=== PATIENT | female | born 1985 | race Hispanic/Latino ===

== ENCOUNTER → 2018-03-17 | Day surgery (SDC) | payer OTHER ==
[2018-03-08 09:20] LABS: HEMATOCRIT 39.8 % (34.2-44.1); HEMOGLOBIN 12.8 g/dL (12.0-16.0)
[2018-03-08 09:51] LABS: ANION GAP 13.1 mmol/L (8-16); BLOOD UREA NITROGEN 9 mg/dL (7-26); BUN/CREATININE RATIO 13 (6-25); CALCIUM 9.3 mg/dL (8.4-10.2); CARBON DIOXIDE 24 mmol/L (22-29); CHLORIDE 103 mmol/L (98-107); CREATININE, SERUM 0.67 mg/dL (0.57-1.11); EST GLOMERULAR FILTRATION RATE > 60 ML/MIN (60-); GLUCOSE 116 mg/dL (74-118); POTASSIUM 4.1 mmol/L (3.5-5.1); SODIUM 136 mmol/L (136-145)
[~2018-03-17] MED LIST: BALANCED SALT SOLN (OPTH) 15 ML BTL IO ONE; LIDOCAINE HCL 2% LOCAL INJ 5 ML SDV VIAL INJ ONE; LIDOCAINE HCL-PF 4% 40 MG/1 ML 5ML AMP ONE; METFORMIN HCL500 MG PO; MIDAZOLAM HCL 2 MG/2 ML VIAL ONE; PROPOFOL IV EMULSION 10 MG/ML 20 ML VIAL ONE
--- OUTSIDE RECORDS SUMMARY | 2018-03-17 07:02 | XMS REPORT | Clinical Summary ---
Author Author [facility] Organization [facility] Address Unknown Phone Unavailable Care Team Providers Care Surveillance Monitor Name Role Phone Cezar Vigil MD PCP Allergies No Known Allergies Current Medications Prescription Sig. Disp. Refills Start End Date Status Date blood glucose Use as directed.. 1 Kit 0 10/18/19 Active meterIndications: Type 2 16 diabetes mellitus without complication lisinopril (ZESTRIL) 2.5 Take 1 tablet by mouth 90 tablet 1 01/12/20 Active mg tabletIndications: daily. 18 Microalbuminuria metFORMIN (GLUCOPHAGE) Please take 1 tablet in 270 tablet 1 01/12/20 Active 500 mg tabletIndications: am and 2 tablets in pm 18 Type 2 diabetes mellitus with meals. without complication, without long-term current use of insulin atorvastatin (LIPITOR) 40 Take 1 tablet by mouth at 90 tablet 1 01/12/20 Active mg tabletIndications: bedtime nightly. 18 Hyperlipidemia, unspecified hyperlipidemia type lancets 28 2 times weekly. 100 Each 01/14/20 Active gaugeIndications: Type 2 18 diabetes mellitus without complication, without long-term current use of insulin blood glucose test 2 times weekly. 100 Each 01/14/20 Active stripsIndications: Type 2 18 diabetes mellitus without complication, without long-term current use of insulin, Follow up loratadine (CLARITIN) 10 Take 1 tablet by mouth 90 tablet 0 01/12/20 Active mg tabletIndications: daily as needed for 18 Seasonal allergic Allergies. rhinitis, unspecified trigger lancets 28 2 times weekly. 100 Each 11 10/21/19 06/07/19 Discontin gaugeIndications: Type 2 16 18 ued diabetes mellitus without complication Vit A & D-White Apply to affected area. 1 Tube 0 01/23/20 06/07/19 Discontin Petrolatum-Avel (A + D, 16 18 ued AVEL, PET,) OintIndications: Monilial cystitis vitamin Take 1 tablet by mouth 30 tablet 0 08/10/19 06/07/19 Discontin tabletIndications: daily Pharmacist september 16 18 ued , unspecified select any gestational age Vitamin product covered on the patient's insurance for new rxs and refills. lancets 28 Check blood glucose 4 200 Each 9 08/12/19 06/07/19 Discontin gaugeIndications: Type 2 times daily. 17 18 ued diabetes mellitus with complication, without long-term current use of insulin blood glucose test 4 times daily to test 150 Each 12 10/28/19 06/07/19 Discontin stripsIndications: Type 2 blood sugar. 17 18 ued diabetes mellitus with complication, without long-term current use of insulin blood glucose test strips 4 times daily Check BG 150 Each 3 02/10/20 06/07/19 Discontin fasting and 2 hours after 17 18 ued breakfast, lunch, and dinner.. tropicamide (MYDRIACYL) Instill 1 Drop in each 15 mL 0 06/07/19 06/07/19 0.5 % ophthalmic eye once as needed for up 18 18 solutionIndications: Type to 1 dose (for poor 2 diabetes mellitus retina scan image). without complication, without long-term current use of insulin metFORMIN (GLUCOPHAGE) Please take 1 tablet in 270 tablet 1 06/07/19 01/12/20 Discontin 500 mg tabletIndications: am and 2 tablets in pm 18 18 ued Type 2 diabetes mellitus with meals. without complication, without long-term current use of insulin blood glucose test 2 times weekly. 100 Each 06/07/19 01/12/20 Discontin stripsIndications: Type 2 18 18 ued diabetes mellitus without complication, without long-term current use of insulin, Follow up lancets 28 2 times weekly. 100 Each 06/07/19 01/12/20 Discontin gaugeIndications: Type 2 18 18 ued diabetes mellitus without complication, without long-term current use of insulin atorvastatin (LIPITOR) 40 Take 1 tablet by mouth at 90 tablet 1 07/02/19 01/12/20 Discontin mg tabletIndications: bedtime nightly. 18 18 ued Hyperlipidemia, unspecified hyperlipidemia type lisinopril (ZESTRIL) 2.5 Take 1 tablet by mouth 45 tablet 1 07/02/19 10/05/19 Discontin mg tabletIndications: daily. 18 18 ued Microalbuminuria mupirocin (BACTROBAN) 2 % Apply to affected area 3 22 g 0 07/02/19 07/13/19 ointmentIndications: Boil times daily for 7 days. 18 18 acyclovir (ZOVIRAX) 400 Take 1 tablet by mouth 3 15 tablet 0 07/06/19 07/14/19 mg tabletIndications: times daily for 5 days. 18 18 HSV-1 infection lisinopril (ZESTRIL) 2.5 Take 1 tablet by mouth 90 tablet 0 10/05/19 01/12/20 Discontin mg tabletIndications: daily. 18 18 ued Microalbuminuria ibuprofen (MOTRIN) 800 mg Take 1 tablet by mouth 30 tablet 0 10/05/19 01/12/20 Discontin tabletIndications: Acute every 8 hours as needed 18 18 ued upper respiratory for Pain. infection azithromycin (ZITHROMAX) Take 2 tablets by mouth 6 Each 0 10/05/19 10/10/19 250 mg tabletIndications: on the first day, then 18 18 Acute upper respiratory take one tablet every day infection for the next 4 days. benzonatate (TESSALON Take one to two capsules 30 capsule 0 10/05/19 01/12/20 Discontin PERLES) 100 mg three times a day as 18 18 ued capsuleIndications: Cough needed for cough. 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 All appointments scheduled for 02/01/17. 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 01/26/2017 Will start ANT now at 30 weeks due to risk of anhydramnios. Patient's [facility] appts scheduled for 02/01/17 Maura Study Participant - Page [phone] upon arrival to [facility], admission 09/15/2016 to L&D & at delivery Overview: Maura: BACTERIA AND STUDY: This patient is enrolled in a long-term study. PLEASE page [phone] if the patient is admitted, or presents to the ER. If delivery is precipitous, PLEASE save placenta and cord blood. Type 2 diabetes mellitus without complication 08/25/2016 Overview: Formatting of this note may be different from the original. Current Medications: Glyburide 1.5mg qAM and 3 mg qPM Baseline Labs/ Consults: Date A1c BUN Cr 24 hour protein EKG 6.4 7 0.51 286mg ( 11/25) SINUS TACHYCARDIA; ABNORMAL RHYTHM ECG Course: 08/25/16: Changed from Metformin to Glyburide 09/07/2016: Increased Glyburide 1.5 BID. 11/17/2016: BG moderately controlled. Fasting BG > 50% elevated mostly 96-98. Pp BG appropriate. Discussed ADA diet. Will continue same regimen. 12/01/2016 reports some elevated fasting and post prandials, taking glyburide 1.5 BID 12/15/2016 no med changes, improve diet control, incorporate exercise 01/12/2017 Elevated fasting glucoses, discussed diet and incorporating exercise. Increase evening glyburide dose --> 1.5mg AM, 3mg PM 01/26/2017 Has some postpranidal elevations up to 130. Discussed diet. Will maintain same glyburide regimen 02/09/2017 BG's overall moderately well controlled, reinforced importance of diet. Continue Glyburide 1.5 mg qAM and 3 mg qPM. Plan: Well-controlled: testing weekly starting at 32-34 weeks Growth scan at 36 weeks Cervical exams and membrane stripping starting at 38 weeks (unless for C/S) Delivery at 39 weeks Poorly-controlled: testing twice weekly starting at 32 weeks Growth scan at 36 weeks Cervical exams and membrane stripping starting at 38 weeks (unless for C/S) Delivery at 34-39 weeks if poor control (Individualize to situation) Delivery at 37-39 weeks if vascular disease (Individualize to situation) Thyroid nodule 08/25/2016 Overview: Formatting of this note may be different from the original. 08/24/16: Reports thyroid nodule that has increased in size. Thyroid ultrasound in October 2015: 0.3 cm solid nodule in the left thyroid lobe. This may be followedwith thyroid ultrasound in 12 months to document stability. Will check TFTs today. 08/25/2016 10:16 Free T4 1.12 TSH 1.02 10/27/2016 asymptomatic. Thyroid US re-ordered. 11/17: US not yet scheduled, will attempt to schedule now. Asymptomatic. 01/12/2017 US re-ordered today 01/26/2017 US thyroid scheduled 02/08/17 02/09/2017 Patient reports that thyroid US cancelled as it is not covered by [employer]. Patient encouraged to apply for [employer] (air [employer]). Herpes infection 08/25/2016 Overview: 08/25/16: Patient reports that her partner has genital herpes. She has never had an outbreak or symptoms. [ ] Start acyclovir suppression at 36wga Resolved Problems Problem Noted Date Resolved Date Supervision of high-risk 08/25/2016 07/01/2017 Overview: Formatting of this note may be different from the original. Labs: Type/Scr RPR Rubella HBsAG HIV Sickle Scr Early H/H Early Plt UCx O+/neg NR Imm neg neg 11.8/35.9 230 neg GC/Chl Pap Quad Scr 1 hr GTT 3rd RPR 3rd HIV 3rd H/H 3rd Plt GBS Neg/Neg NILM neg T2DM U/S Dating U/S on 09/04/16: at 9w0d, dating c/w LMP Anatomy U/S on 11/05/16 -> 17w0d: 175g ( 44%), placenta posterior. Anatomy suboptimal: left renal pelvis was incompletely seen, and no bladder was clearly visualized, may represent renal agenesis. Single umbilical artery. Follow up Anatomy on 11/24/16: 19w5d: 299 g (41%), single umbilical artery, bilateral echogenic kidneys, renal arteries identified, concern for aneuploidy, amnio performed 02/09/17: S/p MRI at [facility], plan for transfer of care to [facility] for delivery. Plan: [ ] Quad Screen @ 15-22 weeks (Ideally 16-18 weeks) [ ] TDap at 28-32 weeks: [ ] 3rd Trimester HIV, CBC, GBS H/O delivery, currently 08/25/2016 07/01/2017 Overview: 08/25/16: delivery at 33wk at [facility], L&D notes reviewed in Epic and patient presented in spontaneous pre-term labor. Discussed risks/benefits of 17-OHP and importance of continuing weekly. Discussed does not need cervical length monitoring. Patient would like to start 17OHP at 16wks. Continue until 36 wks. 09/08/16 - Cervical lengths screening is indicated at 16 weeks given PTB was < 34 weeks. Will order and initiate with 17OHP. 10/13/2016Patient counseled by Dr. Little, defer CL until anatomy scan and 17OHP until viability. 10/27/2016 will start 17-OHP today 11/17: continue injections. Next CL 11/24. 02/09/2017: Continue 17-OHP Encounters Date Type Specialty Care Team Description 03/14/2018 Lab Appointment Lab Cezar Vigil MD Type 2 diabetes mellitus without complication, without long-term current use of insulin 02/03/2018 Hospital Cardiology Cezar Vigil MD Encounter 01/11/2018 Office Visit Family Practice Cezar Vigil MD Type 2 diabetes mellitus without complication, without long-term current use of insulin (Primary Dx); Microalbuminuria; Hyperlipidemia, unspecified hyperlipidemia type; Follow up; Palpitation; Seasonal allergic rhinitis, unspecified trigger 01/11/2018 Telephone Cordell Roberts Interpretation 10/04/2017 Same Day Family Practice Paloma Hurtado, PHONE REPRESENTATIVE Acute upper respiratory JaceyMarj, PHONE REPRESENTATIVE infection (Primary Dx); Cough; Microalbuminuria 07/08/2017 Pharmacy Visit 07/06/2017 Pharmacy Visit 07/05/2017 Orders Only Family Practice Cezar Vigil MD HSV-1 infection (Primary Dx) 07/05/2017 Pharmacy Visit 07/01/2017 Office Visit Family Practice Cezar Vigil MD Type 2 diabetes mellitus without complication, unspecified jail insulin use status (Primary Dx); Hyperlipidemia, unspecified hyperlipidemia type; Microalbuminuria; Vaginal lesion; Boil 07/01/2017 Pharmacy Visit 07/01/2017 Telephone Lorenzo Stark Interpretation 06/23/2017 Ancillary Radiology Procedure 06/07/2017 Ancillary Ophthalmology Roberth Garibay MD Type 2 diabetes mellitus Procedure without complication, without long-term current use of insulin 06/07/2017 Ancillary Radiology Roberth Garibay MD Procedure 06/07/2017 Office Visit Family Practice Cezar Vigil MD Encounter for diabetic foot exam (Primary Dx); Type 2 diabetes mellitus without complication, without long-term current use of insulin; Injury of left foot, initial encounter; Need for vaccination; Follow up 04/09/2017 Orders Only Family Practice Nathaly England MD 04/02/2017 Orders Only Obstetrics Carol Mcclure ResidentMD Supervision of high risk in third trimester 04/02/2017 Orders Only Family Practice Nathaly England MD 03/26/2017 Orders Only Obstetrics Carol Mcclure ResidentMD Supervision of high risk in third trimester 03/26/2017 Orders Only Family Practice Nathaly England MD 03/19/2017 Orders Only Obstetrics Carol Mcclure ResidentMD Supervision of high risk in third trimester 03/19/2017 Orders Only Family Practice Nathaly England MD after 03/16/2017 Immunizations Name Dates Previously Given Next Due Influenza A (H1N1) Vac 03/27/2009 Injection Influenza Vaccine 03/20/2016, 02/06/2015, 02/16/2014, 03/08/2013, 02/23/2012, 04/01/2011 (Deferred: Patient already had this immunization) Influenza Vaccine, 02/17/2017 Seasonal, Injectable PPV 23 Pneumococcal 08/29/2015 Polysaccaride TDap (Tetanus Toxoid, 01/26/2017 Reduced Diphtheria Toxoid And Acellular Pertussis, Absorbed) Td Tetanus, diphtheria 07/25/2001 Toxoids Vaccine Tdap Tetanus, diphtheria, 01/26/2017, 05/21/2011 acellular pertussis Vaccine Family History Medical History Relation Name Comments Diabetes Father Hypertension Father Hypothyroid Mother Thyroid cancer diagnosed at 57 years old Diabetes Paternal Grandmother Hypertension Sister Relation Name Status Comments Brother Alive Father Alive Mother Alive Paternal Grandmother Sister Alive x4 Sister Social History Tobacco Use Types Packs/Day Years Used Date Never Smoker Smokeless Tobacco: Never Used Tobacco Cessation: Counseling Given: No Alcohol Use Drinks/Week oz/Week Comments No Sex Assigned at Date Recorded Not on file Last Filed Vital Signs Vital Sign Reading Time Taken Blood Pressure 132/87 01/11/2018 8:16 AM CDT Pulse 84 01/11/2018 8:16 AM CDT Temperature 36.8 C (98.3 F) 01/11/2018 8:16 AM CDT Respiratory Rate 18 01/11/2018 8:16 AM CDT Oxygen Saturation 99% 10/04/2017 10:03 AM CDT Inhaled Oxygen - - Concentration Weight 76.4 kg (168 lb 6.4 oz) 01/11/2018 8:16 AM CDT Height 157.5 cm (5' 2") 01/11/2018 8:16 AM CDT Body Mass Index 30.8 01/11/2018 8:16 AM CDT Plan of Treatment Health Maintenance Due Date Last Done Comments DM Foot Exam (Yearly) 06/07/2018 06/07/2017, 07/11/2013 (Postponed), 07/07/2012 DM Retinal Exam (Yearly) 06/07/2018 06/07/2017, 10/08/2015, 07/11/2013 (Postponed), Additional history exists DM HGBA1C (Yearly) 03/14/2019 03/14/2018, 06/07/2017, 08/25/2016, Additional history exists Cervical Cancer Scrn (3 08/26/2019 08/25/2016, 07/11/2013 Yrs) Goals Patient Goal Type Goal Recent Progress Patient-Stat Author ed? Diet Eat more fruits and No Jaymie, vegetables Selma Arielle, LD Diet Reduce portion size No Jaymie, Reduce tortillas to 2-3 Selma Arielle, per (short-term goal) LD Diet Have 3 meals + 1 HS Snack No [place], daily Selma Arielle, LD Exercise Exercise 3x per week (30 Not on track (10/25/2015) No [place], min per time) Primitivo New RN Procedures Procedure Name Priority Date/Time Associated Diagnosis Comments BASIC METABOLIC PANEL Routine 03/14/2018 Type 2 diabetes mellitus Results for this 11:45 AM ELASTIC ATTACHER COVERSTITCH without complication, procedure are in the without long-term current results section. use of insulin HEMOGLOBIN A1C Routine 03/14/2018 Type 2 diabetes mellitus Results for this 11:45 AM ELASTIC ATTACHER COVERSTITCH without complication, procedure are in the without long-term current results section. use of insulin 24 HOUR HOLTER MONITOR Routine 02/03/2018 Palpitation Results for this 9:15 AM CDT procedure are in the results section. 12 LEAD EKG Routine 01/11/2018 Palpitation Results for this 9:29 AM CDT procedure are in the results section. SYPHILIS SCREEN FOR Routine 07/01/2017 Vaginal lesion Results for this INFECTION 2:10 PM ELASTIC ATTACHER COVERSTITCH procedure are in the results section. HEPATITIS PANEL Routine 07/01/2017 Vaginal lesion Results for this 2:10 PM ELASTIC ATTACHER COVERSTITCH procedure are in the results section. HSV I/II IGG Routine 07/01/2017 Vaginal lesion Results for this 2:10 PM ELASTIC ATTACHER COVERSTITCH procedure are in the results section. U/S THYROID/NECK Routine 06/23/2017 Follow up Results for this 1:42 PM ELASTIC ATTACHER COVERSTITCH procedure are in the results section. LIVER PROFILE Routine 06/21/2017 Follow up Results for this 11:19 AM ELASTIC ATTACHER COVERSTITCH procedure are in the results section. CBC/DIFF Routine 06/21/2017 Follow up Results for this 11:19 AM ELASTIC ATTACHER COVERSTITCH procedure are in the results section. FREE T4 Routine 06/21/2017 Follow up Results for this 11:19 AM ELASTIC ATTACHER COVERSTITCH procedure are in the results section. TSH Routine 06/21/2017 Follow up Results for this 11:19 AM ELASTIC ATTACHER COVERSTITCH procedure are in the results section. LIPID PROFILE Routine 06/21/2017 Type 2 diabetes mellitus Results for this 11:19 AM ELASTIC ATTACHER COVERSTITCH without complication, procedure are in the without long-term current results section. use of insulin OPHTHALMOLOGY RETINAL Routine 06/07/2017 Type 2 diabetes mellitus Results for this SCAN 1:20 PM ELASTIC ATTACHER COVERSTITCH without complication, procedure are in the without long-term current results section. use of insulin DIABETIC FOOT EXAM Routine 06/07/2017 Type 2 diabetes mellitus Results for this 12:25 PM ELASTIC ATTACHER COVERSTITCH without complication, procedure are in the without long-term current results section. use of insulin BMP POC Routine 06/07/2017 Results for this 11:19 AM ELASTIC ATTACHER COVERSTITCH procedure are in the results section. XRAY FOOT 3 VIEWS MIN Routine 06/07/2017 Injury of left foot, Results for this 11:10 AM ELASTIC ATTACHER COVERSTITCH initial encounter procedure are in the results section. MICROALBUM, URINE Routine 06/07/2017 Type 2 diabetes mellitus Results for this 10:52 AM ELASTIC ATTACHER COVERSTITCH without complication, procedure are in the without long-term current results section. use of insulin HEMOGLOBIN A1C STAT 06/07/2017 Type 2 diabetes mellitus Results for this 10:28 AM ELASTIC ATTACHER COVERSTITCH without complication, procedure are in the without long-term current results section. use of insulin after 03/16/2017 Results * HEMOGLOBIN A1C (03/14/2018 11:45 AM) Only the most recent of 2 results within the time period is included. Hemoglobin A1c 6.6 (H) 4.3 - 6.1 % BT DIAGNOSTIC IMMUNOLOGY Est Average Gluc 142.7 mg/dL BT DIAGNOSTIC IMMUNOLOGY Specimen Blood Performing Organization Address [facility] Phone Number MISYS BT DIAGNOSTIC IMMUNOLOGY * BASIC METABOLIC PANEL (03/14/2018 11:45 AM) CO2 25 21 - 31 mmol/L BT MAIN-STATION 1 Chloride 104 98 - 107 mmol/L BT MAIN-STATION 1 Potassium 4.1 3.5 - 5.1 mmol/L BT MAIN-STATION 1 Sodium 141 136 - 145 mmol/L BT MAIN-STATION 1 Glucose 98 70 - 110 mg/dL BT MAIN-STATION 1 Urea Nitrogen 8 7 - 25 mg/dL BT MAIN-STATION 1 Creatinine 0.50 (L) 0.6 - 1.2 mg/dL BT MAIN-STATION 1 Anion Gap 12 BT MAIN-STATION 1 Calcium 9.4 8.6 - 10.3 mg/dL BT MAIN-STATION 1 GFR, Estimated >60 mL/min/1.73 m2 BT MAIN-STATION 1 GFR, Estim, Afr-Am >60 mL/min/1.73 m2 BT MAIN-STATION 1 Specimen Blood Performing Organization Address [facility] Phone Number MISYS BT MAIN-STATION 1 * 24 HOUR HOLTER MONITOR (02/03/2018 9:15 AM) 24 HOUR HOLTER MONITOR [facility] Test Date:2018-02-03 Pat Name: ARA MORALES Department: Room: Gender: F Engineering Program Analyst: SELMA PLEITEZ :1986-0 5-05 Requested By: Order Number: [id number] anaya MD: Hector Silva M.D. Interpretive Statements PREDOMINANT RHYTHM IS SINUS HRR SELAM: 57-152 BPM LONGEST PAUSE: 1.2 SEC RARE PACS NO OTHER ARRHYTHMIAS NO HEART BLOCK Electronically Signed On 02-07-18 07:29:59 CDT by Hector Silva M.D. Performing Organization Address [facility] Phone Number [facility] * 12 LEAD EKG (01/11/2018 9:29 AM) 12 LEAD EKG FOR CHP [facility] Test Date:2018-01-11 Pat Name: ARA MORALES Department: Room: Gender: F Engineering Program Analyst: [id number] :1986-0 5-05 Requested By: Order Number: [id number] MD: Elvin Streeter M.D. Measurements Intervals Wheeler Rate: 75 P:45 ID: [id number] QRS: 14 QRSD: 100 T: 37 QT: 382 QTc:427 Interpretive Statements SINUS RHYTHM Electronically Signed On 01-11-18 13:51:44 CDT by Elvin Streeter M.D. Performing Organization Address [facility] Phone Number SMS * SYPHILIS SCREEN FOR INFECTION (07/01/2017 2:10 PM) Treponemal Ab Negative BT DIAGNOSTIC IMMUNOLOGY Final Report Negative BT DIAGNOSTIC IMMUNOLOGY Performing Organization Address [facility] Phone Number [employer] BT DIAGNOSTIC IMMUNOLOGY * HSV I/II IGG (07/01/2017 2:10 PM) HSV 1 IGG 35.30 LABORATORY Reference range: 0.00 to 0.90 CORPORATION OF Unit: index YG (note) Negative<0 .91 Equivocal 0.91 - 1.09 Positive>1 .09 Note: Negative indicates no antibodies detected to HSV-1. Equivocal may suggest early infection.If clinically appropriate, retest at later date. Positive indicates antibodies detected to HSV-1. (H) HSV 2 IGG <0.91 LABORATORY Reference range: 0.00 to 0.90 CORPORATION OF Unit: index YG (note) Negative<0 .91 Equivocal 0.91 - 1.09 Positive>1 .09 Note: Negative indicates no antibodies detected to HSV-2. Equivocal may suggest early infection.If clinically appropriate, retest at later date. Positive indicates antibodies detected to HSV-2. Specimen Blood Performing Organization Address [facility] Phone Number [employer] [facility] [address], [place] [id number] YG 145 * HEPATITIS PANEL (07/01/2017 2:10 PM) HCV IgG Negative NEG BT MAIN-STATION 3 HBsAg Negative NEG BT MAIN-STATION 3 HAV, IgM Negative NEG BT MAIN-STATION 3 HBcAb, IgM Negative NEG BT MAIN-STATION 3 Specimen Blood Performing Organization Address [facility] Phone Number [employer] BT MAIN-STATION 3 * U/S THYROID/NECK (06/23/2017 1:42 PM) Impressions Performed At IMPRESSION: SMS 1.Two thyroid nodules, the largest of which measures 0.4 cm, which do not meet criteria for FNA or follow-up. 2.Normal bilateral thyroid lobe size and echogenicity. TR4a (<1.0 cm), , Moderately Suspicious: No follow-up. TI-RADS Lexicon: TR1, Benign: No FNA TR2, Not Suspicious: No FNA. TR3a (<1.5 cm): No follow-up. TR3b (1.5-2.5 cm), Mildly Suspicious: Follow at 1, 3, 5 years. TR3c (>2.5 cm), Mildly Suspicious: FNA. TR4a (<1.0 cm): No follow-up. TR4b (1.0-1.5 cm), Moderately Suspicious: Follow at 1, 2, 3, 5 years. TR4c (>1.5 cm), Moderately Suspicious: FNA. TR5a (<0.5 cm): No follow-up. TR5b (0.5-1.0 cm), Highly Suspicious: Follow at 1, 2, 3, 4, 5 years. TR5c (>1.0 cm), Highly Suspicious: FNA. *Rebiopsy if new suspicious features *No recommendation at this time for significant interval growth. Nodule Characteristics: *Benign features: cystic, hyperechoic, comet-tail artifact, complete halo *Minor suspicious features: solid, hypoechoic, other calcifications *Major suspicious features: microcalcifications, marked hypoechoic (less than strap muscle), suspicious lymph nodes, taller than wide, lobulated or ill-defined margins. Literature: ACR Thyroid Imaging, Reporting and Data System (TI-RADS): White Paper of the ACR TI-RADS Committee. J Am Racquel Radiol 2017. Dictated By: Don Garcia MD, 06/23/2017 1:44 PM I have reviewed the study and agree with the findings in this report. Signed By: Gwyn Villatoro MD, 06/23/2017 2:03 PM Narrative Performed At EXAM: Thyroid Ultrasound [facility] INDICATION: pt states she had thyroid nodule - f/u COMPARISON: Thyroid ultrasound from 10/15/2015 TECHNIQUE: Transverse and sagittal images were obtained of the thyroid gland. FINDINGS: Thyroid gland: Size: Right lobe 3.9 x 1.2 x 1.4 cm, Normalin size Left lobe 3.8 x 1.3 x 1.3 cm, Normalin size Isthmus 0.25 cm, Normal in size Appearance: Homogeneous echotexture without increased vascularity Masses/Nodules: Right lobe: 0.4 x 0.3 x 0.2 cm solid (2 pts) nodule in the superior pole with ill-defined margin (0 pts), xmnrp-ennc-ljdw (0 pts), isoechoic (1 pt), and no calcifications (0 pts).TR3a (<1.5 cm): No follow-up. Left lobe: 0.2 x 0.2 x 0.3 cm solid (2 pts) nodule in the inferior pole with ill-defined margin (0 pts), bqqbm-qenl-hifq (0 pts), hypoechoic (2 pts), and no calcifications (0 pts).Previously 0.3 x 0.2 x 0.3 cm.TR4a (<1.0 cm): No follow-up. Parathyroid: No focal parathyroid masses. 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 FINDINGS: Thyroid gland: Size: Right lobe 3.9 x 1.2 x 1.4 cm, Normal in size Left lobe 3.8 x 1.3 x 1.3 cm, Normal in size Isthmus 0.25 cm, Normal in size Appearance: Homogeneous echotexture without increased vascularity Masses/Nodules: Right lobe: 0.4 x 0.3 x 0.2 cm solid (2 pts) nodule in the superior pole with ill-defined margin (0 pts), znrlt-xivi-ekrz (0 pts), isoechoic (1 pt), and no calcifications (0 pts). TR3a (<1.5 cm): No follow-up. Left lobe: 0.2 x 0.2 x 0.3 cm solid (2 pts) nodule in the inferior pole with ill-defined margin (0 pts), purxl-puqx-ppuq (0 pts), hypoechoic (2 pts), and no calcifications (0 pts). Previously 0.3 x 0.2 x 0.3 cm. TR4a (<1.0 cm): No follow-up. Parathyroid: No focal parathyroid masses. IMPRESSION IMPRESSION: 1. Two thyroid nodules, the largest of which measures 0.4 cm, which do not meet criteria for FNA or follow-up. 2. Normal bilateral thyroid lobe size and echogenicity. TR4a (<1.0 cm), , Moderately Suspicious: No follow-up. TI-RADS Lexicon: TR1, Benign: No FNA TR2, Not Suspicious: No FNA. TR3a (<1.5 cm): No follow-up. TR3b (1.5-2.5 cm), Mildly Suspicious: Follow at 1, 3, 5 years. TR3c (>2.5 cm), Mildly Suspicious: FNA. TR4a (<1.0 cm): No follow-up. TR4b (1.0-1.5 cm), Moderately Suspicious: Follow at 1, 2, 3, 5 years. TR4c (>1.5 cm), Moderately Suspicious: FNA. TR5a (<0.5 cm): No follow-up. TR5b (0.5-1.0 cm), Highly Suspicious: Follow at 1, 2, 3, 4, 5 years. TR5c (>1.0 cm), Highly Suspicious: FNA. *Rebiopsy if new suspicious features *No recommendation at this time for significant interval growth. Nodule Characteristics: * Benign features: cystic, hyperechoic, comet-tail artifact, complete halo * Minor suspicious features: solid, hypoechoic, other calcifications * Major suspicious features: microcalcifications, marked hypoechoic (less than strap muscle), suspicious lymph nodes, taller than wide, lobulated or ill-defined margins. Literature: ACR Thyroid Imaging, Reporting and Data System (TI-RADS): White Paper of the ACR TI-RADS Committee. J Am Racquel Radiol 2017. Dictated By: Don Garcia MD, 06/23/2017 1:44 PM I have reviewed the study and agree with the findings in this report. Signed By: Gwyn Villatoro MD, 06/23/2017 2:03 PM Performing Organization Address City/State/[facility] Phone Number SMS * TSH (06/21/2017 11:19 AM) TSH 0.71 0.45 - 5.33 uIU/mL BT MAIN-STATION 3 Specimen Blood Performing Organization Address City/State[facility] Phone Number MIS[facility] BT [facility] * FREE T4 (06/21/2017 11:19 AM) Free T4 0.89 0.61 - 1.12 ng/dl BT MAIN-ST[facility] 3 Comment: females: 1st Trimester-0.52-1.10 ng/dL 2nd Trimester=0.45-0.99 ng/dL 3rd Trimester=0.48-0.95 ng/dL Specimen Blood Performing Organization Address [facility] Phone Number MISYS BT [facility] 3 * LIVER PROFILE (06/21/2017 11:19 AM) T Protein 7.4 6.4 - 8.2 g/dL BT MAIN-STATION 4 Albumin 4.2 3.4 - 5.0 g/dL BT MAIN-[facility]ATION 4 T Bilirubin 0.4 0.2 - 1.0 mg/dL BT MAIN-STATION 4 Alk Phos 106 45 - 117 U/L BT MAIN-STATION 4 AST 12 (L) 15 - 37 U/L BT MAIN-STATION 4 ALT 32 12 - 78 U/L BT MAIN-STATION 4 D Bilirubin 0.1 0.0 - 0.2 mg/dL BT MAIN-STATION 4 Specimen Blood Performing Organization Address [facility] Phone Number MISYS BT MAIN-ST[facility] 4 * LIPID PROFILE (06/21/2017 11:19 AM) Cholesterol 220 (H) <200 mg/dL BT MAIN-STATION 4 Comment: REFERENCE RANGE: Desirable: <200 mg/dL Borderline: 200-240 mg/dL High Risk: >240 mg/dL Triglyceride 266 (H) <150 mg/dL BT MAIN-STATION 4 Comment: REFERENCE RANGE: Normal: <150 mg/dL Borderline High: 150-199 mg/dL High: 200-499 mg/dL Very High: >pb=325 mg/dL HDL 45 40 - 60 mg/dL BT MAIN-STATION 4 Comment: Increased CHD risk: <40 mg/dL Decreased CHD risk: >60 mg/dL LDL 122 mg/dL BT MAIN-STATION 4 Comment: REFERENCE RANGE: Optimal: <100 mg/dL Near Optimal: 100-129 mg/dL Borderline High: 130-159 mg/dL High: 160-189 mg/dL Very High: >wl=002 mg/dL Specimen Blood Performing Organization Address [facility] Phone Number MISYS BT [facility]IN-[facility] 4 * CBC/DIFF (06/21/2017 11:19 AM) WBC 6.5 4.5 - 11.0 K/uL BT MAIN-STATION 2 RBC 4.93 4.20 - 5.40 M/uL BT MAIN-STATION 2 Hemoglobin 12.3 12.0 - 16.0 g/dL BT MAIN-STATION 2 Hematocrit 40.2 37.0 - 47.0 % BT MAIN-STATION 2 MCV 82 82 - 92 fL BT MAIN-STATION 2 MCH 24.9 (L) 27.0 - 32.0 pg BT MAIN-STATION 2 MCHC 30.6 (L) 32.0 - 36.0 g/dL BT MAIN-STATION 2 RDW 50.4 (H) 36.4 - 46.3 fL BT MAIN-STATION 2 Platelet 276 150 - 400 K/uL BT MAIN-STATION 2 Mean Platelet Volume 12.4 9.4 - 12.4 fL BT MAIN-STATION 2 Percent NRBC 0.0 BT MAIN-STATION 2 Absolute NRBC 0.00 BT MAIN-STATION 2 Neutrophil 52.8 34.0 - 70.0 % BT MAIN-STATION 2 Lymphocyte 39.7 20.0 - 50.0 % BT MAIN-STATION 2 Monocyte 5.7 5.0 - 12.0 % BT MAIN-STATION 2 Eosinophil 1.2 0.7 - 5.0 % BT MAIN-STATION 2 Basophil 0.3 0.1 - 1.2 % BT MAIN-STATION 2 Pct Immat Gran 0.3 0.0 - 0.5 BT MAIN-STATION 2 Neutrophil, Abs 3.42 1.56 - 6.13 K/uL BT MAIN-STATION 2 Lymphocyte, Abs 2.57 1.18 - 3.74 K/uL BT MAIN-STATION 2 Monocyte, Abs 0.37 (H) 0.24 - 0.36 K/uL BT MAIN-STATION 2 Eosinophil, Abs 0.08 0.04 - 0.36 K/uL BT MAIN-STATION 2 Basophil, Abs 0.02 0.01 - 0.08 K/uL BT MAIN-STATION 2 Absol Immat Gran 0.02 0.00 - 0.03 K/uL BT MAIN-STATION 2 Specimen Blood Performing Organization Address City/State/Zipcode Phone Number MISYS MA[facility]-ST[facility] 2 * OPHTHALMOLOGY RETINAL SCAN (06/07/2017 1:20 PM) RETINAL SCAN-FINAL RESULT NORMAL [facility] Right Diabetic None [facility] Retinopathy Right Macular Edema None IRIS Right Other Suspected None IRIS Conditions Right Image Quality Gradeable Image IRIS Left Diabetic Retinopathy None IRIS Left Macular Edema None IRIS Left Other Suspected None IRIS Conditions Left Image Quality Gradeable Image [facility]IS Narrative Performed At Retinal Study Result for ARA AYERS MARIA, a 31 y/o, F (: 1985, ) presented to [facility] on 06-07-2017 for a retinal imaging study of the left and right eyes. Based on the findings of the study, the following is recommended for ARA AYERS Normal Scan: Please advise the patient to return for another scan in 1 year. Interpreting Provider's Comments:No comments provided Right Eye Findings: Normal Result.Negative for Diabetic Retinopathy. Left Eye Findings: Normal Result.Negative for Diabetic Retinopathy. This result was electronically signed by Maximino Bo MD. Taxonomy: [id number] on 06-07-2017 06:20:06 [facility] time. NOTE:Any pathology noted on this diabetic retinal evaluation should be confirmed by an appropriate ophthalmic examination. Performing Organization Address City/State/Zipcode Phone Number IRIS * DIABETIC FOOT EXAM (06/07/2017 12:25 PM) Narrative Performed At Cezar Vigil MD 06/07/2017 12:29 PM Diabetic Foot Exam was performed at 06/07/2017 12:28 PM.Right foot sensation is normal, right foot pulses are normal, right foot appearance is normal.Left foot sensation is normal,left foot pulses are normal, left foot appearance is normal. Left foot dorsal aspect bruise noted in the base of the 4th / 5th toe * BMP POC (06/07/2017 11:19 AM) TCO2 POC 26 21 - 32 mmol/L [facility] Chloride POC 99 98 - 107 mmol/L [facility] Potassium POC 4.0 3.50 - 5.10 mmol/L [facility] Sodium POC 138 136 - 145 mmol/L [facility] Glucose POC 112 (H) 74 - 106 mg/dL [facility] Urea Nitrogen POC 5 (L) 7 - 18 mg/dL [facility] Creatinine POC 0.6 0.6 - 1.3 mg/dL [facility] Ionized Calcium POC 1.15 1.15 - 1.29 mmol/L [facility] GFR, Estimated >60 mL/min/1.73 m2 [facility] GFR, Estim, Afr-Am >60 mL/min/1.73 m2 [facility] Performing Organization Address [facility] Phone Number VICKI [facility] * XRAY FOOT 3 VIEWS MIN (06/07/2017 11:10 AM) Impressions Performed At IMPRESSION: SMS Mild dorsal soft tissue swelling without acute osseous abnormalities. Dictated By: Rey Morin MD, 06/07/2017 3:21 PM I have reviewed the study and agree with the findings in this report. Signed By: Rajesh Ricketts MD, 06/07/2017 3:22 PM Narrative Performed At Left foot radiographs - 3 views SMS HISTORY:left foot injury 1 wk ago -has bruise on dorsal aspect near the base of toes and pain in the 4/5 th toe area COMPARISON: None DISCUSSION: Bone: No acute displaced fracture.Fusion of the distal and middle fifth phalanges. Joints: The joint spaces are well-maintained. Soft tissues: Mild dorsal soft tissue swelling overlying the metatarsophalangeal joints. Procedure Note Interface, Rad/Mammog In - 06/07/2017 3:27 PM ELASTIC ATTACHER COVERSTITCH Left foot radiographs - 3 views HISTORY: left foot injury 1 wk ago -has bruise on dorsal aspect near the base of toes and pain in the 4/5 th toe area COMPARISON: None DISCUSSION: Bone: No acute displaced fracture. Fusion of the distal and middle fifth phalanges. Joints: The joint spaces are well-maintained. Soft tissues: Mild dorsal soft tissue swelling overlying the metatarsophalangeal joints. IMPRESSION IMPRESSION: Mild dorsal soft tissue swelling without acute osseous abnormalities. Dictated By: Rey Morin MD, 06/07/2017 3:21 PM I have reviewed the study and agree with the findings in this report. Signed By: Rajesh Ricketts MD, 06/07/2017 3:22 PM Performing Organization Address [facility] Phone Number [facility] * MICROALBUM, URINE (06/07/2017 10:52 AM) Orangealbu, Random 2.3 0.0 - 29.0 mg/dL BT MAIN-[facility]ATION 3 Creatinine, Ur 49.9 mg/dL BT MAIN-STATION 3 Urine Microalbumin 46.1 (H) 0 - 29 mg/g UCR BT MAIN-STATION 3 Comment: To minimize intra-individual variation, analysis of three random urine samples collected over the course of a week is recommended. Performing Organization Address City/State/Zipcode Phone Number MISYS BT [facility] 3 after 03/16/2017
--- OUTSIDE RECORDS SUMMARY | 2018-03-17 07:03 | XMS REPORT ---
[facility] Address Unknown Phone Unavailable Care Team Providers Care Grocery Manager Name Role Phone Unavailable Unavailable Problems This patient has no known problems. Allergies, Adverse Reactions, Alerts This patient has no known allergies or adverse reactions. Medications This patient has no known medications. Encounters Start Date/Time End Date/Time Encounter Type Admission Type Attending [facility] Care Facility Care Department Encounter ID 2018-03-14 11:51:45 2018-03-14 11:51:45 Outpatient [facility] [id number] 2018-02-08 00:00:00 2018-02-08 00:00:00 Outpatient [facility] [id number] 2018-02-03 09:05:19 2018-02-03 09:05:19 Outpatient [facility] [id number] 2018-01-11 08:16:23 2018-01-11 08:16:23 Outpatient [facility] [id number] 2017-10-04 10:01:32 2017-10-04 10:01:32 Outpatient [facility] [id number] 2017-07-01 14:11:50 2017-07-01 14:11:50 Outpatient [facility] [id number] 2017-07-01 13:15:16 2017-07-01 13:15:16 Outpatient [facility] [id number] 2017-06-23 10:45:54 2017-06-23 10:45:54 Outpatient [facility] [id number] 2017-06-21 11:20:47 2017-06-21 11:20:47 Outpatient [facility] [id number] 2017-06-21 00:00:00 2017-06-21 00:00:00 Outpatient [facility] [id number] 2017-06-07 11:50:01 2017-06-07 11:50:01 Outpatient [facility] [id number] 2017-06-07 11:04:11 2017-06-07 11:04:11 Outpatient [facility] [id number] 2017-06-07 10:53:23 2017-06-07 10:53:23 Outpatient [facility] [id number] 2017-06-07 09:26:16 2017-06-07 09:26:16 Outpatient [facility] [id number] 2017-06-04 00:00:00 2017-06-04 00:00:00 Outpatient [facility] [id number] 2017-03-02 00:00:00 2017-03-02 00:00:00 Outpatient [facility] [id number] 2017-02-23 10:49:29 2017-02-23 10:49:29 Outpatient [facility] [id number] 2017-02-23 00:00:00 2017-02-23 00:00:00 Outpatient [facility] [id number] 2017-02-23 00:00:00 2017-02-23 00:00:00 Outpatient [facility] [id number] 2017-02-23 00:00:00 2017-02-23 00:00:00 Outpatient [facility] [id number] 2017-02-16 09:23:17 2017-02-16 09:23:17 Outpatient [facility] [id number] 2017-02-16 09:06:17 2017-02-16 09:06:17 Outpatient [facility] [id number] 2017-02-09 10:37:35 2017-02-09 10:37:35 Outpatient [facility] [id number] 2017-02-09 09:12:43 2017-02-09 09:12:43 Outpatient [facility] [id number] 2017-02-09 09:07:30 2017-02-09 09:07:30 Outpatient [facility] [id number] 2017-02-09 00:00:00 2017-02-09 00:00:00 Outpatient [facility] [id number] 2017-02-08 00:00:00 2017-02-08 00:00:00 Outpatient [facility] [id number] 2017-02-02 12:35:45 2017-02-02 12:35:45 Outpatient [facility] [id number] 2017-01-26 10:13:30 2017-01-26 10:13:30 Outpatient [facility] [id number] 2017-01-26 09:35:54 2017-01-26 09:35:54 Outpatient [facility] [id number] 2017-01-19 10:31:22 2017-01-19 10:31:22 Outpatient [facility] [address] [id number] 2017-01-19 09:34:57 2017-01-19 09:34:57 Outpatient [facility] [id number] 2017-01-12 11:03:30 2017-01-12 11:03:30 Outpatient [facility] [id number] 2016-12-22 12:45:01 2016-12-22 12:45:01 Outpatient [facility] [id number] 2016-12-22 10:55:56 2016-12-22 10:55:56 Outpatient [facility] [id number] 2016-12-15 13:47:38 2016-12-15 13:47:38 Outpatient [facility] [id number] 2016-11-24 13:41:36 2016-11-24 13:41:36 Outpatient [facility] [id number] 2016-11-05 10:51:55 2016-11-05 10:51:55 Outpatient [facility] [id number] 2016-11-05 10:38:48 2016-11-05 10:38:48 Outpatient [facility] [id number] 2016-11-05 10:36:46 2016-11-05 10:36:46 Outpatient [facility] [id number] 2016-11-05 00:00:00 2016-11-05 00:00:00 Outpatient [facility] [id number] 2010-01-14 00:00:00 2010-01-14 00:00:00 Outpatient [facility] [id number]
[2018-03-17 11:45] VITALS: BP 120/77
== END | disposition home or self-care (01) ==
LOC: OR 07:00
PROVIDERS: ATTEND Ophthalmology
DX: H11.001 Unspecified pterygium of right eye (principal); Z01.810 Encounter for preprocedural cardiovascular examination; Z01.812 Encounter for preprocedural laboratory examination; E11.9 Type 2 diabetes mellitus without complications; Z79.84 Long term (current) use of oral hypoglycemic drugs
CPT/HCPCS: 36415 ×2; 65426; 80048; 81025; 82948; 85014; 85018; 88304; 93005; J2001; J2250; J2704